=== PATIENT | female | born 1950 | race Caucasian/White ===

== ENCOUNTER → 2017-02-18 | Day surgery (SDC) | payer OTHER ==
[~2017-02-18] MED LIST: ANTIVERT 25MG #1 PAC PO; ASPIRIN EC PO; ECOTRIN81 MG PO; EFFEXOR XR150 MG PO; FLAX SEED OIL1000 MG PO; HYDROCHLOROTHIAZIDE PO; LASIX20 MG PO; LISINOPRIL20 MG PO; METOPROLOL PO; METOPROLOL SUCC50 M1 PO; OMEPRAZOLE40 M1 PO; PLENDIL10 MG PO; PROTONIX 40MG T40 MG PO; [UNRECOGNIZED DRUG - OTHER] PO
--- NOTE | 2017-02-18 08:56 | MAMMOGRAPHY REPORT ---
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 COMPARISON: Stereotactic biopsy and mammogram dated 01/03/2017. TECHNIQUE NEEDLE LOC: Proper informed consent is obtained from the patient after discussion of the procedure, potential risks and complications, and alternatives including declining the procedure today. Patient was given an opportunity for questions. The patient appeared to understand. The patient consented to the procedure and signed the consent form. GUIDANCE: Digital mammography. APPROACH: Superior. TARGET: Biopsy clip in the right breast 12:00 position. ANESTHESIA: 10 mL Xylocaine 2%. LOCALIZATION MARKER: [employer] 5 cm needle. The skin was prepped and local anesthesia administered. The needle was positioned and position assessed with mammography. The wire was hooked into position. The patient tolerated the procedure well and had no immediate complication. Diagram was marked for the surgeon. The target is located around the thick segment of the wire, 3 cm deep to the skin with 10 cm of the wire remaining external to the skin. IMPRESSION: Status post right breast needle localization with wire hooked into position. The target is located around the thick segment of the wire, 3 cm deep to the skin with 10 cm of the wire remaining external to the skin.
--- NOTE | 2017-02-18 12:24 | Operative Report ---
Operative/Inv Procedure Report Surgery Date: 02/18/17 Name of Procedure: Right breast excisional biopsy with wire localization Pre-Operative Diagnosis: Complex sclerosing papillary lesion Post-Operative Diagnosis: Same Estimated Blood Loss: less than 50ml Surgeon/Combat Engineer: AVI NOLAN MD Anesthesia: local monitored anesthesi Specimens: Right breast biopsy Operative/Procedure Note Note: Patient is status post a needle biopsy showing complex sclerosing papillary lesion. She is brought to the operating for excision. The right breast was prepped and draped in a sterile fashion using ChloraPrep. Local anesthesia of 1 % lidocaine mixed half percent Marcaine was given and a curvilinear incision was made at 12:00. The wire was brought into the incision and the air concern was asked using an Allis clamp. The specimen was removed and marked for orientation using margin map. Intraoperative x-ray confirmed the presence of the clip in the specimen. Hemostasis was achieved and the deep tissue was proximal made using interrupted Vicryl sutures. The skin was closed using a running Biosyn subcuticular stitch. Steri-Strips and sterile dressings were applied and patient was transferred to the recovery room in satisfactory condition having tolerated the procedure well.
--- NOTE | 2017-02-18 17:26 | MAMMOGRAPHY REPORT ---
EXAMINATION: MM NEEDLE LOCALIZATION SPECIMEN FROM THE BREAST, RIGHT CLINICAL INDICATION: Specimen radiograph of sclerosing intraductal papilloma. COMPARISON: Needle localization films from earlier today. TECHNIQUE: Single specimen radiograph was obtained. FINDINGS: The radiograph of the excised surgical specimen shows that the hookwire is delivered intact and the marker clip and calcifications are identified in the specimen. IMPRESSION: Satisfactory excision of the targeted lesion. These findings were communicated to the surgeon in the OR at the time of specimen radiography.
== END ==
LOC: STS 07:00 → CBW.IIU 09:00 → CBW.MAMMO 09:30
DX: D24.1 Benign neoplasm of right breast (principal); I10 Essential (primary) hypertension; K21.9 Gastro-esophageal reflux disease without esophagitis; M79.7 Fibromyalgia; E06.9 Thyroiditis, unspecified; E11.9 Type 2 diabetes mellitus without complications; Z79.84 Long term (current) use of oral hypoglycemic drugs
CPT/HCPCS: J0131; J0690; J1170; J2001; J2250; J3010